=== PATIENT | female | born 1990 | race Caucasian/White ===

== ENCOUNTER → 2020-09-23 09:00 | Outpatient (BNVA) | payer MEDICAID, SELFPAY | PROVIDERS: Family Provider Nurse Practitioner Family; Visit Provider Nurse Practitioner Women's Health | DX: Z01.419 Encounter for gynecological examination (general) (routine) without abnormal findings (principal) | CPT/HCPCS: 88175 ==

== ENCOUNTER → 2022-09-29 09:44 | Outpatient (BNVA) | payer MEDICAID, SELFPAY | PROVIDERS: Family Provider Nurse Practitioner Family; Visit Provider Nurse Practitioner Women's Health | DX: Z01.419 Encounter for gynecological examination (general) (routine) without abnormal findings (principal) | CPT/HCPCS: 87624 ==

== ENCOUNTER 2022-10-14 13:14 | Outpatient (CLI) | payer MEDICAID, SELFPAY ==
--- NOTE | 2022-10-14 13:19 | MM_ITS ---
WS: [id number] BILATERAL 3D TOMOSYNTHESIS DIGITAL DIAGNOSTIC MAMMOGRAPHY WITH CAD CLINICAL INFORMATION: N63.10 - Unspecified lump in the right breast, unspecifie... COMPARISON: None. TECHNIQUE: 3 views bilateral breast FINDINGS: The breasts are composed of heterogeneous fibroglandular density tissue, which can limit the detectio n of small underlying mass lesions. No mammographic abnormalities in the area of palpable concern RIG HT breast. LEFT breast is unremarkable. . Ultrasound RIGHT breast described below. ULTRASOUND BREAST RIGHT TECHNIQUE: Ultrasound right breast focused area of concern. CLINICAL INFORMATION: N63.10 - Unspecified lump in the right breast, unspecifie... FINDINGS: Ultrasound RIGHT breast 3:00 position 5 cm from the nipple in the area of concern. Small hypoechoic l esion in this location measuring 4.1 x 3.7 x 2.5 mm is technically indeterminant but most likely repr esents a small complex cyst. No other suspicious abnormalities. Recommend 6 month follow-up ultrasoun d RIGHT breast to confirm stability. MM/[place] [id number] IMPRESSION: BI-RADS: 3-Probably Benign FOLLOW UP: 6 Month Follow-up Recommend 6 month follow-up RIGHT breast ultrasound to confirm stability.
--- NOTE | 2022-10-14 14:00 | US_ITS ---
WS: [id number] BILATERAL 3D TOMOSYNTHESIS DIGITAL DIAGNOSTIC MAMMOGRAPHY WITH CAD CLINICAL INFORMATION: N63.10 - Unspecified lump in the right breast, unspecifie... COMPARISON: None. TECHNIQUE: 3 views bilateral breast FINDINGS: The breasts are composed of heterogeneous fibroglandular density tissue, which can limit the detectio n of small underlying mass lesions. No mammographic abnormalities in the area of palpable concern RIG HT breast. LEFT breast is unremarkable. . Ultrasound RIGHT breast described below. ULTRASOUND BREAST RIGHT TECHNIQUE: Ultrasound right breast focused area of concern. CLINICAL INFORMATION: N63.10 - Unspecified lump in the right breast, unspecifie... FINDINGS: Ultrasound RIGHT breast 3:00 position 5 cm from the nipple in the area of concern. Small hypoechoic l esion in this location measuring 4.1 x 3.7 x 2.5 mm is technically indeterminant but most likely repr esents a small complex cyst. No other suspicious abnormalities. Recommend 6 month follow-up ultrasoun d RIGHT breast to confirm stability. US/US breast RT limited* [id number] IMPRESSION: BI-RADS: 3-Probably Benign FOLLOW UP: 6 Month Follow-up Recommend 6 month follow-up RIGHT breast ultrasound to confirm stability.
== END 2022-10-14 13:15 | disposition home or self-care (01) ==
PROVIDERS: PCP Family Medicine; Visit Provider Nurse Practitioner Women's Health
DX: N63.10 Unspecified lump in the right breast, unspecified quadrant (principal)
CPT/HCPCS: 76642; 77062; 87624; G0279

== ENCOUNTER 2023-07-17 12:20 | Outpatient (CLI) | payer MEDICAID, SELFPAY ==
--- NOTE | 2023-07-17 12:27 | US_ITS ---
WS: [id number] ULTRASOUND RIGHT BREAST HISTORY: 6-month follow-up. COMPARISON: Mammogram 10/14/2022 and ultrasound 10/14/2022 TECHNIQUE: 2-D and Doppler. No significant interval change in appearance of the small cluster of hypoechoic nodules in the RIGHT breast at 3:00, 5 cm from the nipple. The largest measures 5 x 4 x 5 mm. No progression in size. IMPRESSION: US/US breast RT limited* [id number] BI-RADS: 3-Probably Benign FOLLOW-UP: 6 Month Follow-up Patient to return for bilateral mammogram in October 2022. Continued close follow-u p of the hypoechoic nodule in the RIGHT breast at 3:00.
== END 2023-07-17 12:21 | disposition home or self-care (01) ==
LOC: RAD 12:21
PROVIDERS: PCP Family Medicine; Visit Provider Nurse Practitioner Women's Health
DX: N63.15 Unspecified lump in the right breast, overlapping quadrants (principal)
CPT/HCPCS: 76642

== ENCOUNTER 2023-10-17 08:53 | Outpatient (CLI) | payer MEDICAID, SELFPAY ==
--- NOTE | 2023-10-17 09:00 | MM_ITS ---
WS: [id number] DIAGNOSTIC BILATERAL DIGITAL BREAST TOMOSYNTHESIS MAMMOGRAPHY WITH CAD RIGHT breast ultrasound, limited HISTORY: N63.10 - Unspecified lump in the right breast, unspecifie... COMPARISON: 10/14/2022, breast ultrasound 07/17/2023 TECHNIQUE: Bilateral craniocaudad, mediolateral oblique, and mediolateral views are submitted with to mosynthesis and SM. Spot compression LEFT CC. Computer aided detection utilized. Breast composition: The breasts are heterogeneously dense, which may obscure small masses. Marker lilian can along the medial RIGHT breast at 3:00 corresponds to the palpable area. There is no underlying ma ss identified. No suspicious distortion or calcification. RIGHT breast ultrasound, limited. There is a very tiny cyst at 3:00 remaining. This may be the residual of the complex cyst seen on the prior ultrasound. MM/[place] [id number] IMPRESSION: BI-RADS: 2-Benign FOLLOW UP: 1 Year Follow-up The complex cystic area in the RIGHT breast at 3:00 is not identified by ultras ound today. Also, the asymmetry in the RIGHT breast seen on the mammogram is le ss conspicuous and nearly resolved. Recommend return to annual screening mammog xiang.
== END 2023-10-17 08:54 | disposition home or self-care (01) ==
LOC: RAD 08:53
PROVIDERS: PCP Family Medicine; Visit Provider Nurse Practitioner Women's Health
DX: N63.10 Unspecified lump in the right breast, unspecified quadrant (principal); R92.30 Dense breasts, unspecified
CPT/HCPCS: 77062; G0279

== ENCOUNTER 2023-10-17 08:53 | Outpatient (CLI) | payer MEDICAID, SELFPAY ==
--- NOTE | 2023-10-17 09:30 | US_ITS ---
WS: [id number] DIAGNOSTIC BILATERAL DIGITAL BREAST TOMOSYNTHESIS MAMMOGRAPHY WITH CAD RIGHT breast ultrasound, limited HISTORY: N63.10 - Unspecified lump in the right breast, unspecifie... COMPARISON: 10/14/2022, breast ultrasound 07/17/2023 TECHNIQUE: Bilateral craniocaudad, mediolateral oblique, and mediolateral views are submitted with to mosynthesis and SM. Spot compression LEFT CC. Computer aided detection utilized. Breast composition: The breasts are heterogeneously dense, which may obscure small masses. Marker lilian can along the medial RIGHT breast at 3:00 corresponds to the palpable area. There is no underlying ma ss identified. No suspicious distortion or calcification. RIGHT breast ultrasound, limited. There is a very tiny cyst at 3:00 remaining. This may be the residual of the complex cyst seen on the prior ultrasound. US/US breast RT limited* [id number] IMPRESSION: BI-RADS: 2-Benign FOLLOW UP: 1 Year Follow-up The complex cystic area in the RIGHT breast at 3:00 is not identified by ultras ound today. Also, the asymmetry in the RIGHT breast seen on the mammogram is le ss conspicuous and nearly resolved. Recommend return to annual screening mammog xiang.
== END 2023-10-17 08:54 | disposition home or self-care (01) ==
LOC: RAD 08:53
PROVIDERS: PCP Family Medicine; Visit Provider Nurse Practitioner Women's Health
DX: N63.10 Unspecified lump in the right breast, unspecified quadrant (principal); R92.30 Dense breasts, unspecified
CPT/HCPCS: 76642

== ENCOUNTER 2024-11-27 08:48 | Outpatient (CLI) | payer MEDICAID, SELFPAY ==
--- NOTE | 2024-11-27 08:54 | MM_ITS ---
WS: [id number] BILATERAL SCREENING DIGITAL TOMOSYNTHESIS MAMMOGRAM WITH CAD HISTORY: SCREENING COMPARISON: 10/17/2023, 10/14/2022 Bilateral CC and MLO views with tomosynthesis and synthetic mammography submitted. Computer aided detection analyzed. Breast composition: The breasts are heterogeneously dense, which may obscure small masses. No suspicious masses, microcalcifications or architectural distortion. Stable mass upper outer quadrant LEFT breast. MM/MM scr BI tomosynthesis [id number] IMPRESSION: BI-RADS: 2 - Benign FOLLOW UP: 1 Year Follow-up
== END 2024-11-27 08:49 | disposition home or self-care (01) ==
PROVIDERS: PCP Family Medicine; Visit Provider Internal Medicine
DX: Z12.31 Encounter for screening mammogram for malignant neoplasm of breast (principal)
CPT/HCPCS: 77063; 77067